=== PATIENT | female | born 1955 ===

== ENCOUNTER 2025-03-29 08:54 | Oncology outpatient (recurring) (ONCR) | payer MEDICARE, SELFPAY | END 2025-03-29 23:59 | disposition home or self-care (01) | PROVIDERS: PCP Family Medicine; Visit Provider Internal Medicine | DX: C18.9 Malignant neoplasm of colon, unspecified (principal); C78.00 Secondary malignant neoplasm of unspecified lung; C78.7 Secondary malignant neoplasm of liver and intrahepatic bile duct; C79.51 Secondary malignant neoplasm of bone; Z93.1 Gastrostomy status; C79.31 Secondary malignant neoplasm of brain; Z79.899 Other long term (current) drug therapy; Z93.3 Colostomy status | CPT/HCPCS: 99204 ==

== ENCOUNTER 2025-04-18 10:21 | Oncology outpatient (recurring) (ONCR) | payer MEDICARE, SELFPAY ==
[2025-04-18 10:47] LABS: Hematocrit 31.5 % (36-47); Hemoglobin 10.10 g/dL (11.27-16.99); Mean Corpuscular HGB Conc 32.1 g/dL (30-55); Mean Corpuscular Hemoglobin 28.9 pg (27-33); Mean Corpuscular Volume 90.0 fl (85-98); Nucleated Red Blood Cells % 0 %; Platelet Count 187 10^3/cmm (157-399); Red Blood Count 3.50 10^6/uL (3.85-5.65); White Blood Count 18.20 10^3/uL (3.29-11.43)
[2025-04-18 10:49] LABS: Glucose Urine UA Negative (Normal); Nitrate Urine Negative (Negative); Specific Gravity, Urine 1.018 (1.005-1.030)
[2025-04-18 10:54] LABS: Add Urine Microscopic? YES
[2025-04-18 11:03] LABS: Alanine Aminotransferase 11 U/L (0-33); Albumin Level 4.3 g/dL (3.5-5.2); Alkaline Phosphatase 194 U/L (35-105); Anion Gap 14.1 (5-19); Aspartate Amino Transferase 17 U/L (0-32); Blood Urea Nitrogen 19 mg/dL (8-23); Calcium 9.8 mg/dL (8.5-10.5); Carbon Dioxide 27 mmol/L (22-29); Chloride 105 mmol/L (98-107); Globulin 2.5 g/dL (1.3-4.6); Glucose 109 mg/dL (65-115); Osmolality Calculated 297 mOsm/kg (285-295); Potassium 4.1 mmol/L (3.5-5.1); Sodium 142 mmol/L (136-145); Total Protein 6.8 g/dL (6.6-8.7)
== END 2025-04-18 23:59 | disposition home or self-care (01) ==
PROVIDERS: PCP Family Medicine; Visit Provider Internal Medicine
DX: C18.9 Malignant neoplasm of colon, unspecified (principal); C78.00 Secondary malignant neoplasm of unspecified lung; C79.51 Secondary malignant neoplasm of bone; C79.31 Secondary malignant neoplasm of brain; D50.1 Sideropenic dysphagia; T45.1X5A Adverse effect of antineoplastic and immunosuppressive drugs, initial encounter; Z93.3 Colostomy status; Z79.899 Other long term (current) drug therapy; Z93.1 Gastrostomy status; D64.9 Anemia, unspecified; D72.829 Elevated white blood cell count, unspecified
CPT/HCPCS: 80053; 81001; 85025; 99213